=== PATIENT | female | born 1980 | race Caucasian/White ===

== ENCOUNTER 2017-08-03 13:51 | Emergency (ER) | payer OTHER ==
[2017-08-03 13:57] VITALS: BP 136/75; PULSE 79; RESP 17; TEMP 98.9
[2017-08-03] MEDS ORDERED: TOPICAL SKIN ADHESIVE 1 EACH AMP TOPICAL ONE (14:11)
--- NOTE | 2017-08-03 14:20 | ED ---
General Adult HPI - General Chief complaint: Wound/Laceration Stated complaint: Lac/Thumb Time Seen by Provider: 08/03/17 13:58 Source: patient, RN notes reviewed Mode of arrival: ambulatory Limitations: no limitations - History of Present Illness Initial comments: Patient 37-year-old female who presents emergency room today with chief complaint of a laceration to the left thumb that occurred just prior to arrival. Does not that she was chopping onions when she accidentally cut her thumb. She states she missed tetanus is up-to-date. She denies any other complaints or associated symptoms. Patient denies any recent fever, chills, shortness of breath, chest pain, back pain, abdominal pain, nausea or vomiting, numbness or tingling, dysuria or hematuria, constipation or diarrhea, headaches or visual changes, or any other complaints. - Related Data Allergies Allergy/AdvReac Type Severity Reaction Status Date / Time bee venom protein (honey bee) Allergy Unknown Verified 08/03/17 13:53 Review of Systems ROS Statement: Those systems with pertinent positive or pertinent negative responses have been documented in the HPI. ROS Other: All systems not noted in ROS Statement are negative. Past Medical History Past Medical History: No Reported History History of Any Multi-Drug Resistant Organisms: None Reported Additional Past Surgical History / Comment(s): gastric sleeve Past Psychological History: Anxiety, Depression Smoking Status: Former smoker Past Alcohol Use History: Occasional Past Drug Use History: None Reported General Exam - General Exam Comments Initial Comments: General: The patient is awake and alert, in no distress, and does not appear acutely ill. Eye: Pupils are equal, round and reactive to light, extra-ocular movements are intact. No nystagmus. There is normal conjunctiva bilaterally. No signs of icterus. Ears, nose, mouth and throat: There are moist mucous membranes and no oral lesions. Neck: The neck is supple, there is no tenderness or JVD. Musculoskeletal: Normal ROM, no tenderness. Strength 5/5. Sensation intact. Pulses equal bilaterally 2+. Neurological: A&O x 3. CN II-XII intact, There are no obvious motor or sensory deficits. Coordination appears grossly intact. Speech is normal. Skin: Does have a 1 cm linear laceration to the medial aspect of the left thumb. No active bleeding. Psychiatric: Cooperative, appropriate mood & affect, normal judgment. Limitations: no limitations Course Vital Signs 08/03/17 13:53 Temperature 98.9 F Pulse Rate 79 Respiratory 17 Rate Blood Pressure 136/75 O2 Sat by Pulse 98 Oximetry Procedures - Procedures Initial comment: Patient's laceration was cleaned here in the emergency room with saline. Wound edges approximated closed with Dermabond. Patient tolerated well. Disposition Clinical Impression: Laceration Disposition: HOME SELF-CARE Condition: Good Instructions: Laceration (ED) Additional Instructions: Please allow the glue to follow up on its own over the next 2-5 days. Please watch for any sign of infection which may include increased pain comes on, redness, fever or chills. Please return to emergency room if the symptoms increase or worsen or for any other concerns. Referrals: Zoila Villalobos MD [Primary Care Provider] - 1-2 days Time of Disposition: 14:19
== END 2017-08-03 14:30 | disposition home or self-care (01) ==
LOC: EC 13:51
DX: S61.012A Laceration without foreign body of left thumb without damage to nail, initial encounter (principal); Z87.891 Personal history of nicotine dependence; Z91.030 Bee allergy status; W45.8XXA Other foreign body or object entering through skin, initial encounter; Y92.009 Unspecified place in unspecified non-institutional (private) residence as the place of occurrence of the external cause
CPT/HCPCS: 12001; 99282

== ENCOUNTER 2017-08-10 22:22 | Emergency (ER) | payer OTHER ==
[2017-08-10 22:36] VITALS: RESP 18; TEMP 98.5
--- NOTE | 2017-08-10 22:46 | ED ---
General Adult HPI - General Chief complaint: Back Pain/Injury Stated complaint: low back pain Time Seen by Provider: 08/10/17 22:35 Source: patient, RN notes reviewed Mode of arrival: ambulatory Limitations: no limitations - History of Present Illness Initial comments: This is a 37-year-old female who presents emergency Department complaining of right lower back pain. Patient states started yesterday but has gotten progressively worse today. Patient states she also has pain radiating down her left leg. Patient states there's been no injury fall or any direct trauma. Patient states she has had this in the past but today is a little worse than it has ever been in the past. Patient states movement or lifting her right leg makes the pain worse. Patient denies any numbness or weakness. Patient denies any urinary incontinence or retention. Patient states she has some dysuria but very little. Patient denies any abdominal pain. Patient denies nausea vomiting diarrhea. Patient denies any fever chills. - Related Data Home Medications Medication Instructions Recorded Confirmed buPROPion HCL [Wellbutrin SR] 150 mg PO BID 08/10/17 08/10/17 Previous Rx's Medication Instructions Recorded Hydrocodone/Acetaminophen [[place] 1 each PO Q4HR PRN #20 tab 08/11/17 5-325] Ibuprofen [Motrin] 600 mg PO Q6HR PRN #20 tab 08/11/17 Sulfamethox-Tmp 800-160Mg [Bactrim 1 each PO Q12HR #14 tab 08/11/17 DS 800-160 mg] Allergies Allergy/AdvReac Type Severity Reaction Status Date / Time bee venom protein (honey bee) Allergy Swelling Verified 08/10/17 22:46 Review of Systems ROS Statement: Those systems with pertinent positive or pertinent negative responses have been documented in the HPI. ROS Other: All systems not noted in ROS Statement are negative. Past Medical History Past Medical History: No Reported History History of Any Multi-Drug Resistant Organisms: None Reported Additional Past Surgical History / Comment(s): gastric sleeve Past Psychological History: Anxiety, Depression Smoking Status: Former smoker Past Alcohol Use History: Occasional Past Drug Use History: None Reported General Exam - General Exam Comments Initial Comments: GENERAL: Patient is well-developed and well-nourished. Patient is nontoxic and well- hydrated and is in mild distress. ENT: Neck is soft and supple. No significant lymphadenopathy is noted. Oropharynx is clear. Moist mucous membranes. Neck has full range of motion without eliciting any pain. EYES: The sclera were anicteric and conjunctiva were pink and moist. Extraocular movements were intact and pupils were equal round and reactive to light. Eyelids were unremarkable. PULMONARY: Unlabored respirations. Good breath sounds bilaterally. No audible rales rhonchi or wheezing was noted. CARDIOVASCULAR: There is a regular rate and rhythm without any murmurs gallops or rubs. ABDOMEN: Soft and nontender with normal bowel sounds. SKIN: Skin is clear with no lesions or rashes and otherwise unremarkable. NEUROLOGIC: Patient is alert and oriented x3. Cranial nerves II through XII are grossly intact. Motor and sensory are also intact. Normal speech, volume and content. Symmetrical smile. MUSCULOSKELETAL: Normal extremities with adequate strength and full range of motion. Patient has reproducible right-sided lumbar pain with palpation. Straight leg test is negative bilaterally. LYMPHATICS: No significant lymphadenopathy is noted PSYCHIATRIC: Normal psychiatric evaluation. Limitations: no limitations Course Vital Signs 08/10/17 08/10/17 22:34 23:19 Temperature 98.5 F Pulse Rate 74 61 Respiratory 18 18 Rate Blood Pressure 152/70 136/77 O2 Sat by Pulse 97 100 Oximetry Medical Decision Making - Medical Decision Making X-ray of the back shows a deformity related to scoliosis measuring about 37. Patient, had a urinary tract infection patient received 1 g of Rocephin - Lab Data Lab Results 08/10/17 08/10/17 Range/Units 22:48 22:48 Urine Color Yellow Urine Appearance Cloudy H (Clear) Urine pH 6.5 (5.0-8.0) Ur Specific Cable 1.031 (1.001-1.035) Urine Protein Trace H (Negative) Urine Glucose (UA) Negative (Negative) Urine Ketones Negative (Negative) Urine Blood Small H (Negative) Urine Nitrite Negative (Negative) Urine Bilirubin Negative (Negative) Urine Urobilinogen 3.0 (<2.0) mg/dL Ur Leukocyte Esterase Large H (Negative) Urine RBC 18 H (0-5) /hpf Urine WBC >182 H (0-5) /hpf Ur Squamous Epith Cells 7 H (0-4) /hpf Urine Mucus Rare H (None) /hpf Urine HCG, Qual Not Detected (Not Detectd) Disposition Clinical Impression: Urinary tract infection, Sciatica, Scoliosis Disposition: HOME SELF-CARE Instructions: Acute Low Back Pain (ED) Prescriptions: Hydrocodone/Acetaminophen [[place] 5-325] 1 each PO Q4HR PRN #20 tab PRN Reason: Pain Ibuprofen [Motrin] 600 mg PO Q6HR PRN #20 tab PRN Reason: For pain Sulfamethox-Tmp 800-160Mg [Bactrim DS 800-160 mg] 1 each PO Q12HR #14 tab Referrals: Zoila Villalobos MD [Primary Care Provider] - 1-2 days Time of Disposition: 00:14
[2017-08-10 23:18] LABS: Appearance,Urine Cloudy (Clear); Bilirubin,Urine Negative (Negative); Glucose,Urine (UA) Negative (Negative); Ketones,Urine Negative (Negative); Leukocyte Esterase,Urine Large (Negative); Mucus,Urine Rare /hpf; Nitrite,Urine Negative (Negative); PH, Urine 6.5 (5.0-8.0); Particle Count 8338; Protein,Urine Trace (Negative); RBC,Urine 18 /hpf (0-5); Specific Gravity,Urine 1.031 (1.001-1.035); Squamous Epithelial Cell,Urine 7 /hpf (0-4); UA Billing (MACRO vs. MICRO) MICRO; WBC,Urine >182 /hpf (0-5)
[2017-08-10] MEDS ORDERED: KETOROLAC 60 MG/2 ML VIAL IM STA (23:23)
[2017-08-10] MEDS ORDERED: ORPHENADRINE 30 MG/ML 2 ML VIAL IM STA (23:23)
[2017-08-10] MEDS ORDERED: cefTRIAXone 250 MG VIAL IM STA (23:23)
[2017-08-10] MEDS ORDERED: HYDROcodone/APAP 5-325MG 1 EACH TAB PO STA (23:24)
--- NOTE | 2017-08-10 23:45 | XR ---
EXAMINATION TYPE: XR lumbosacral spine min 4V DATE OF EXAM: 08/10/2017 COMPARISON: NONE HISTORY: Back pain TECHNIQUE: 5 views FINDINGS: There is lumbar levorotoscoliosis. There is degenerative disc space narrowing at L3-4 with moderate spur formation. There is no compression fracture. Sacroiliac joints are intact. IMPRESSION: Scoliotic deformity. Moderate spondylosis at L3-4. No fracture. Scoliosis measures 37 deg elidia.
[2017-08-10] MEDS ORDERED: cefTRIAXone 1,000 MG VIAL (IM USE) IM STA (23:58)
[2017-08-11 00:37] VITALS: BP 141/93; PULSE 65
== END 2017-08-11 00:36 | disposition home or self-care (01) ==
LOC: EC 22:22
DX: N39.0 Urinary tract infection, site not specified (principal); M54.31 Sciatica, right side; M41.9 Scoliosis, unspecified; F41.9 Anxiety disorder, unspecified; F32.9 Major depressive disorder, single episode, unspecified; Z79.899 Other long term (current) drug therapy; Z91.030 Bee allergy status; Z53.20 Procedure and treatment not carried out because of patient's decision for unspecified reasons
CPT/HCPCS: 81001; 81025; 87086; 72110; 99283; 96372 ×3; J2360; J0696; J1885